=== PATIENT | female | born 1965 | race Caucasian/White ===

== ENCOUNTER → 2024-03-03 06:17 | Day surgery (SDC) | payer OTHER, SELFPAY | LOC: GI 06:17 | PROVIDERS: ATTENDING PHYSICIAN Internal Medicine | DX: Z12.11 Encounter for screening for malignant neoplasm of colon (principal); D12.0 Benign neoplasm of cecum; D12.8 Benign neoplasm of rectum; K63.5 Polyp of colon; K62.1 Rectal polyp; Z86.010 Personal history of colon polyps | CPT/HCPCS: 45385; 45380; 88305 ==

== ENCOUNTER 2024-03-13 10:06 | Emergency (ER) | payer OTHER, SELFPAY ==
[2024-03-13 10:18] VITALS: BP 192/107
--- NOTE | 2024-03-13 10:20 | ED.GENMED ---
ED Provider Triage
<Krysten Ferris PA-C - Last Filed: 03/13/24 10:24>
-
Patient seen by provider in Triage?: Seen in Triage
Attestation: A medical screening examination has been initiated by a qualified medical provider. Based on the assessment performed at this time, it has been determined that an emergent medical condition may exist and the patient has been informed
that further medical evaluation and possible additional diagnostic testing may be needed.
HPI: 58yoF here with low back pain x 5 days after heavy lifting. Using ibuprofen and Flexeril without relief. No fevers, incontinence, saddle anesthesia.
GENERAL: Alert , in no apparent distress
EYE: No visual abnormalities.
NECK: Trachea midline
ENT: No visible abnormalities.
LUNGS: No acute respiratory distress
NEUROLOGICAL: Alert and oriented
SKIN: Skin intact. No visible changes.
MUSCULOSKELETAL: Moving extremities normally
PSYCH: Normal and appropriate interaction.
This is a medical evaluation conducted in person to initiate diagnostic evaluation and provide initial therapeutics. Please see further documentation by the treating clinician.
Lumbar spine x-rays ordered.
History of Present Illness
<Krysten Ferris PA-C - Last Filed: 03/13/24 10:24>
General
Chief Complaint: Back Pain
Time Seen by Provider: 03/13/24 11:37
<Osman Davis MD - Last Filed: 03/13/24 14:59>
General
Source: patient
Exam Limitations: none
History of Present Illness
History of Present Illness:
58-year-old female complaining of low back pain. Positional in nature. Started with pain lifting 3 to 4 days ago. Initially seemed to start improving however became worse the last 24 hours. Some pain in her thighs. No distal numbness tingling
or weakness. No bowel or bladder issues. No infectious symptoms. Able to ambulate but with pain. Came by private vehicle
Past History
<rKysten Ferris PA-C - Last Filed: 03/13/24 10:24>
Past History
ED Past Medical History: Asthma, HTN and Other (Bacterial vaginal infection); Negative CAD
ED Past Surgical History: Cholecystectomy and (X2)
Social History
Tobacco: Smoker
Alcohol: Occasional
Drug: None
Personal:
Living: with family
Review of Systems
<Osman Davis MD - Last Filed: 03/13/24 14:59>
Review of Systems
All Other Systems: Not applicable
Constitutional: Denies fever or chills
ABD/GI: Reports no symptoms
Phy Exam
<Osman Davis MD - Last Filed: 03/13/24 14:59>
Physical Exam
Physical Exam:
GENERAL: Alert and oriented in no apparent distress
EYE: Orbits normal.
NECK: Supple
CARDIAC: Regular rate and rhythm without any obvious murmurs.
LUNGS: Clear breath sounds,normal
ABDOMEN: Soft, without focal tenderness or distention. No pulsatile mass
NEUROLOGICAL: Alert and oriented , grossly non-focal
SKIN: Warm and dry, no rash or lesion, no discoloration, skin intact.
MUSCULOSKELETAL: No edema,no deformity.Good color. Low back pain with straight leg raising. No shooting pain down the legs. Patellar reflexes intact. Lower extremity strength normal. Paralumbar tenderness and increased pain with sitting up. No
spinal tenderness
PSYCH: Normal and appropriate interaction.
Course
<Krysten Ferris PA-C - Last Filed: 03/13/24 10:24>
Orders/Labs/Results
Orders:
Orders
03/13/24 10:22
CR Lumbar Spine Comp Min 4 Vw* Urgent
Comment:
Reason For Exam: low back pain
03/13/24 11:12
Urinalysis Reflex To Culture Urgent
Date Specimen was Collected: 03/13/24
Time Specimen was Collected: 11:10
03/13/24 11:50
CT Abd/pel Without Iv Or Oral Urgent
Comment:
Reason For Exam: Back pain
Hydrocodone 5/APAP 325 [[place] 5/325] 1 tablet PO NOW STA
Ketorolac [Toradol] 60 mg IM NOW STA
Vital Signs
Initial and Last Documented VS:
Initial Vital Signs
Temp Pulse Resp BP Pulse Ox
98.3 F 84 18 192/107 100
03/13/24 10:18 03/13/24 10:18 03/13/24 10:18 03/13/24 10:18 03/13/24 10:18
Last Documented Vital Signs
Temp Pulse Resp BP Pulse Ox
98.3 F 87 18 154/87 98
03/13/24 10:18 03/13/24 14:34 03/13/24 14:34 03/13/24 14:34 03/13/24 14:34
<Osman Davis MD - Last Filed: 03/13/24 14:59>
Orders/Labs/Results
Orders:
Orders
03/13/24 10:22
CR Lumbar Spine Comp Min 4 Vw* Urgent
Comment:
Reason For Exam: low back pain
03/13/24 11:12
Urinalysis Reflex To Culture Urgent
Date Specimen was Collected: 03/13/24
Time Specimen was Collected: 11:10
03/13/24 11:50
CT Abd/pel Without Iv Or Oral Urgent
Comment:
Reason For Exam: Back pain
Hydrocodone 5/APAP 325 [[place] 5/325] 1 tablet PO NOW STA
Ketorolac [Toradol] 60 mg IM NOW STA
Vital Signs
Initial and Last Documented VS:
Initial Vital Signs
Temp Pulse Resp BP Pulse Ox
98.3 F 84 18 192/107 100
03/13/24 10:18 03/13/24 10:18 03/13/24 10:18 03/13/24 10:18 03/13/24 10:18
Last Documented Vital Signs
Temp Pulse Resp BP Pulse Ox
98.3 F 87 18 154/87 98
03/13/24 10:18 03/13/24 14:34 03/13/24 14:34 03/13/24 14:34 03/13/24 14:34
<Osman Davis MD - Last Filed: 03/13/24 14:59>
*Radiology
Radiology exam reviewed: preliminary read by ED provider (Degenerative changes) and radiology read reviewed (Mild degenerative changes. CT with vascular sclerotic changes. No aneurysm. No kidney stone.)
*Pulse Oximetry
Patient hypoxic: no
*Critical Care Note
Total Time (30-74mins, 75-104mins- exclusive of procedures): Not Applicable
<Osman Davis MD - Last Filed: 03/13/24 14:59>
Update Note
Update Note:
All consistent with musculoskeletal back pain. Stable for discharge to follow-up.
ED Attending Note
<Krysten Ferris PA-C - Last Filed: 03/13/24 10:24>
-
Portions of this chart may have been created with voice recognition software.� Occasional wrong word or��sound alike� substitutions may have occurred due to the inherent limitations of voice recognition software.
Discharge Plan
Departure
Patient Disposition: Home (Routine Discharge)
Date of Disposition: 03/13/24
Time of Disposition: 14:56
Patient with high blood pressure during this ER visit?: Yes
Discharge Problem:
Low back pain
Instructions: Low Back Pain (DC), BLOOD PRESSURE
Prescriptions:
New
hydrocodone-acetaminophen 5-300 mg tablet
1 tab PO Q4H PRN (Reason: Pain) Qty: 14 0RF
No Action
hydrochlorothiazide 12.5 MG capsule
12.5 mg PO DAILY
albuterol sulfate 1 PUFF HFA aerosol inhaler
1 puff inhalation R Q4HPRN PRN (Reason: sob)
loratadine 10 MG tablet
10 mg PO DAILY PRN (Reason: allergies)
etanercept [Enbrel] 50 MG/ML syringe
50 mg SQ DISLA
cholecalciferol (vitamin D3) [Vitamin D3] 2,000 UNIT capsule
2,000 unit PO DAILY
docusate sodium 100 MG capsule
100 mg PO BID 0RF
senna leaf extract [senna] 15 ML syrup
10 ml PO HSPRN PRN (Reason: constipation) 0RF
guaifenesin [Mucus Relief ER] 600 MG tablet extended release 12hr
600 mg PO Q12 Qty: 10 0RF
budesonide [Pulmicort Flexhaler] 90 MCG aerosol powdr breath activated
90 mcg inhalation R BID Qty: 1 0RF
prednisone 10 MG tablet
10 mg PO DAILY Qty: 30 0RF
Rx Instructions:
5 tabs daily for 2 days, 4 tabs daily for 2 days, 3 tabs daily for 2 days, 2 tabs daily for 2 days, 1 tab daily for 2 days.
albuterol sulfate 2.5 MG/3 ML solution for nebulization
2.5 mg inhalation R Q4HPRN PRN (Reason: wheezing, shortness of breath) Qty: 1 0RF
sucralfate 1 GM/10 ML suspension
1 gm PO QID Qty: 400 0RF
Rx Instructions:
1 hr priot to meals and at bedtime
pantoprazole 40 MG tablet,delayed release (DR/EC)
40 mg PO HS Qty: 14 0RF
Referrals:
Ivana Ambriz MD [Family Provider] - Follow up in 2-3 days
Activity Restrictions/Additional Instructions:
As we discussed do not take Tylenol with the Vicodin
Also be very careful with the muscle relaxer and the Vicodin as they can both cause drowsiness
Would recommend continuing Advil Motrin or Aleve
Interventions
Interventions:
*Risk Screen - Suicide Last Done: 03/13/24 10:18
*General Assessment Last Done: 03/13/24 10:18
*Neglect/Abuse Screening Last Done: 03/13/24 10:18
ED-Musculoskeletal Assessment Last Done: 03/13/24 11:26
Discharge Date and Time
Print Language: AUSTRALIAN
[2024-03-13 11:19] LABS: Urine Albumin Negative (Neg - Trace); Urine Bilirubin Negative (Negative); Urine Character Clear (Clear); Urine Color Yellow; Urine Glucose Negative (Negative); Urine Ketone Negative (Negative); Urine Leukocyte Negative (Negative); Urine Nitrite Negative (Negative); Urine Occult Blood Negative (Negative); Urine Urobilinogen Negative (Neg - 1+)
[2024-03-13] MEDS: TORADOL 60 MG IM (11:58)
[2024-03-13] MEDS: NORCO 5/325 1 TABLET PO (11:58)
[2024-03-13 14:34] VITALS: BP 154/87
== END 2024-03-13 15:37 | disposition home or self-care (01) ==
LOC: EMR 10:06
PROVIDERS: Student in an Organized Health Care Education/Training Program; EMERGENCY PHYSICIAN Emergency Medicine; FAMILY PHYSICIAN Family Medicine
DX: M54.50 Low back pain, unspecified (principal); I10 Essential (primary) hypertension; J45.909 Unspecified asthma, uncomplicated; F17.200 Nicotine dependence, unspecified, uncomplicated; Z90.49 Acquired absence of other specified parts of digestive tract; Z88.3 Allergy status to other anti-infective agents; Z88.0 Allergy status to penicillin
CPT/HCPCS: 99284; 96372; 72110; 74176; 81003

== ENCOUNTER → 2024-03-25 07:12 | Outpatient (REF) | payer OTHER, SELFPAY | LOC: RCS 07:12 | PROVIDERS: ATTENDING PHYSICIAN Internal Medicine Cardiovascular Disease; FAMILY PHYSICIAN Family Medicine; REFERRING PHYSICIAN Internal Medicine Rheumatology | DX: I35.0 Nonrheumatic aortic (valve) stenosis (principal) | CPT/HCPCS: 93306 ==

== ENCOUNTER → 2024-03-28 07:41 | Outpatient (REF) | payer OTHER, SELFPAY | LOC: WDC 07:41 | PROVIDERS: ATTENDING PHYSICIAN Obstetrics & Gynecology; FAMILY PHYSICIAN Family Medicine | DX: Z12.31 Encounter for screening mammogram for malignant neoplasm of breast (principal) | CPT/HCPCS: 77063; 77067 ==

== ENCOUNTER → 2024-09-01 07:01 | Outpatient (REF) | payer OTHER, SELFPAY | LOC: RCS 07:01 | PROVIDERS: ATTENDING PHYSICIAN Internal Medicine Cardiovascular Disease; FAMILY PHYSICIAN Family Medicine | DX: I35.0 Nonrheumatic aortic (valve) stenosis (principal) | CPT/HCPCS: 93306 ==

== ENCOUNTER → 2025-02-26 08:00 | Outpatient (REF) | payer OTHER, SELFPAY | LOC: RCS 08:00 | PROVIDERS: ATTENDING PHYSICIAN Internal Medicine Cardiovascular Disease; FAMILY PHYSICIAN Family Medicine | DX: I35.0 Nonrheumatic aortic (valve) stenosis (principal); Z82.49 Family history of ischemic heart disease and other diseases of the circulatory system | CPT/HCPCS: 93306 ==

== ENCOUNTER → 2025-03-31 07:38 | Outpatient (REF) | payer OTHER, SELFPAY | LOC: WDC 07:38 | PROVIDERS: ATTENDING PHYSICIAN Obstetrics & Gynecology; FAMILY PHYSICIAN Family Medicine | DX: Z12.31 Encounter for screening mammogram for malignant neoplasm of breast (principal) | CPT/HCPCS: 77063; 77067 ==

== ENCOUNTER 2025-05-22 23:21 | Observation (INO) | payer OTHER, SELFPAY ==
[2025-05-22 20:11] VITALS: BP 146/79
[2025-05-22 20:41] LABS: Hematocrit 30.8 % (37.0-47.0); Hemoglobin 11.2 g/dL (12.0-16.0); Mean Corp Hgb Conc. 36.4 g/dL (33.0-37.0); Mean Corpuscular Volume 90.9 fL (81.0-99.0); Nucleated Red Blood Cells % 0 %; Platelet Count 221 10^3/uL (130-400); Red Cell Dist. Width 11.9 % (11.5-14.5)
[2025-05-22] MEDS: TYLENOL 1000 MG PO (20:42)
[2025-05-22 20:46] LABS: Urine Character Clear (Clear)
[2025-05-22 20:48] LABS: COVID-19 Antigen Negative (Negative)
[2025-05-22 20:56] LABS: ALT (SGPT) 17 U/L (0-35); AST (SGOT) 22 U/L (14-36); Albumin 4.5 g/dl (3.5-5.0); Alkaline Phosphatase 48 U/L (38-126); Blood Urea Nitrogen 10 mg/dl (7-17); Calcium 9.0 mg/dl (8.4-10.2); Carbon Dioxide 18 mmol/L (22-30); Chloride 97 mmol/L (98-107); Glucose 90 mg/dl (70-99); Potassium 4.0 mmol/L (3.5-5.1); Sodium 125 mmol/L (135-145); Total Protein 6.9 g/dl (6.3-8.2); eGFR > 60.00
[2025-05-22 21:01] LABS: Urine Red Blood Cell 0-2 /HPF (0-2)
[2025-05-22 22:07] VITALS: BMI 27.9
[2025-05-22 22:09] VITALS: BP 132/65
--- NOTE | 2025-05-22 22:41 | ED.GENMED ---
History of Present Illness
General
Chief Complaint: Cold/Flu/URI Symptoms
Source: patient
Exam Limitations: none
Time Seen by Provider: 05/22/25 22:05
Nursing documentation reviewed up to this point in time: agreed with
History of Present Illness
History of Present Illness:
59-year-old female with a past medical history of hypertension, hyperlipidemia, CAD, asthma, RA who presents to the emergency department for evaluation of flulike illness. Patient reports onset of symptoms 2 AM today and she has been feeling worse
throughout the day. She reports fever and chills all day. She reports hacking nonproductive cough with wheezing. She reports mild shortness of breath. She reports severe myalgias and arthralgias. She says mild sore throat. Mild headache and
congestion. She did have some vomiting this evening. No diarrhea. She denies chest pain or abdominal pain. She denies any other acute symptoms. Denies any known sick contacts. She did have marked wheezing prior to hospital visit this evening
and took 2 albuterol nebulizers with some improvement.
Past History
Past History
ED Past Medical History: Asthma, HTN and Other (Bacterial vaginal infection); Negative CAD
ED Past Surgical History: Cholecystectomy and (X2)
Social History
Tobacco: Smoker
Alcohol: Occasional
Drug: None
Personal:
Living: with family
Review of Systems
Review of Systems
All Other Systems: ROS reviewed and negative except as documented in HPI and ROS
Constitutional: Reports fever, fatigue and chills
EENT: Reports sore throat and runny nose
Respiratory: Reports cough and trouble breathing
Cardiac: Denies chest pain
ABD/GI: Reports nausea and vomiting; Denies abdominal pain or diarrhea
: Denies flank pain
Musculoskeletal: Reports joint pain and muscle pain
Neurological: Reports headache
Phy Exam
Physical Exam
Physical Exam:
General: Awake, alert, oriented x3; no acute distress
Head: Normocephalic, atraumatic
Eyes: Conjunctiva normal, EOMI
Throat: Airway intact, handling secretions
Neck: Trachea midline, supple without meningismus
Lungs: Faint scattered wheeze, mild tachypnea, no hypoxia, no respiratory distress
Heart: Regular rate and rhythm, systolic murmur noted
Abd: Soft, non distended, nontender
Neuro: Grossly intact
Skin: Warm and dry
Extremities: No edema in extremities, warm and well-perfused
Scores
Heart Failure Risk
Heart Failure Risk Score: Not Applicable
Heart Score for Chest Pain Patients
STEMI patient?: Not applicable
Withdrawal Assessment of Alcohol
Withdrawal Assessment Completed?: Not applicable
Sepsis
Sepsis Screening
Sepsis Assessment: Sepsis Ruled Out
Sepsis Screen
Sepsis Screen: Sepsis Ruled Out
Date: 05/22/25
Time: 23:47
Course
Orders/Labs/Results
Orders:
Orders
05/22/25 20:17
Electrocardiogram (*1) Urgent
Reason for Study: Other
Other Reason for Exam: Possible Sepsis
Cardiac Monitoring- Treatment ONCE
EKG- Treatment ONCE
IV Insert/Care/Rem.- Treatment PRN
CR Chest - 2 Views Urgent
Comment:
Reason For Exam: suspected infection
O2 Therapy [RESP] Urgent
Titrate/Wean O2 to maintain O2 sat greater than (%): 93
Special Instructions: TO MAINTAIN CONTINUOUS O2 SATS > OR = 93%
Pulse Ox/cont/shift [RESP] Urgent
Quantity: 1
Special Instructions: CONTINUOUS
05/22/25 20:30
COVID-19 Antigen Urgent
Source: Nasal Swab
Complete Blood Count/With Diff Urgent
Lactic Acid Q4H
Comment: ON ICE, CANCEL 2ND ORDER IF FIRST LACTIC ACID LEVEL <2
Urinalysis Reflex To Culture Urgent
Date Specimen was Collected: 05/22/25
Time Specimen was Collected: 20:17
Urine Microscopic Reflex Cult Urgent
Influenza A+B Rapid Molecular Urgent
WAQAR Source: Nasal Swab
Specimen Description:
Urine Culture Urgent
WAQAR Source: U
Specimen Description:
Date Specimen was Collected: 05/22/25
Time Specimen was Collected: 20:17
05/22/25 20:31
Comprehensive Metabolic Panel Urgent
Blood Culture Q20M
WAQAR Source: Blood/Venous
Specimen Description:
Comment: Urgent from separate sites. If patient screens positive for possible sepsis
Blood Culture Q20M
WAQAR Source: Blood/Venous
Specimen Description:
Comment: Urgent from separate sites. If patient screens positive for possible sepsis
05/22/25 20:39
Acetaminophen [Tylenol] 1,000 mg .ROUTE .STK-MED ONE
05/22/25 20:41
Acetaminophen [Tylenol] 1,000 mg PO NOW STA
05/22/25 22:40
MethylPREDNISolone PF [Solu-Medrol Pf] 125 mg IV NOW STA
Oseltamivir Phosphate [Tamiflu] 75 mg PO NOW STA
05/22/25 22:41
0.9% Sodium Chloride 1000 ml [Nss] 1,000 ml IV BOLUS
05/22/25 23:21
Admit/Transfer Patient As Directed
Co-Sign Provider:
Level of Care: Observation services
Assign to:: Medical/Surgical
Physician / Group: [facility]
Diagnosis: Influenza A, asthma exacerbation
Reason for Hospitalization: Hyponatremia
PRN Pain Medication Management As Directed
May give lesser potent ordered pain med per pt: Yes
preference::
Protocol:: Medication orders for pain may be administered in a
manner that supports deferring to patient preference
when the pt is:
- Requesting an ordered lesser potent pain medication.
Least to most potent pain medications are defined
as: acetaminophen < NSAID < tramadol < opioids
(morphine, oxycodone, hydromorphone).
- Requesting a lesser dose of the same medication IF
ORDERED.
- Requesting a less intrusive route of administration
if both routes are prescribed by the provider (PO <
IV).
05/22/25 23:22
Code Status As Directed
Resuscitation Status: Full Code
Abnormal Lab Results
05/22/25 05/22/25
20:30 20:31
RBC 3.39 L 10^6/uL
(4.20-5.40)
Hgb 11.2 L g/dL
(12.0-16.0)
Hct 30.8 L %
(37.0-47.0)
MCH 33.0 H pg
(27.0-31.0)
Absolute Neuts (auto) 6.6 H 10^3/uL
(1.4-6.5)
Absolute Lymphs (auto) 0.4 L 10^3/uL
(1.2-3.4)
Neutrophils % 86.3 H %
(42.2-75.2)
Lymphocytes % 5.0 L %
(20.5-51.1)
Sodium 125 L mmol/L
(135-145)
Chloride 97 L mmol/L
(98-107)
Carbon Dioxide 18 L mmol/L
(22-30)
Ur Occult Blood Reflex 2+ A
(Negative)
Leukocyte Esterase Rfl 1+ A
(Negative)
Urine Bacteria (Reflex) Few A
(Negative)
Urine Albumin (Reflex) 1+ A
(Neg - Trace)
05/22/25 20:30
05/22/25 20:31
Vital Signs
Initial and Last Documented VS:
Initial Vital Signs
Temp Pulse Resp BP Pulse Ox
38.3 C H 111 24 146/79 95
05/22/25 20:11 05/22/25 20:11 05/22/25 20:11 05/22/25 20:11 05/22/25 20:11
Last Documented Vital Signs
Temp Pulse Resp BP Pulse Ox
36.9 C 98 21 132/65 96
05/22/25 22:17 05/22/25 22:10 05/22/25 22:10 05/22/25 22:09 05/22/25 22:41
MDM/Problems Addressed
Differential Diagnosis Includes:
Asthma exacerbation, pneumonia, bronchitis, viral illness (flu/COVID)
MDM/Problems Addressed:
59-year-old female presents with flulike illness started earlier this morning. She presents to us tachycardic, mildly tachypneic and febrile but not hypoxic. Physical exam is as above. She had lab work sent off including CBC which shows marginal
anemia, CMP shows moderate hyponatremia likely hypovolemic in the setting of vomiting today and poor p.o. intake. She is positive for influenza A which accounts for her symptoms suspect that she also has an asthma exacerbation. Chest x-ray shows
no pneumonia. Will plan to provide IV fluids for hypovolemia. Will provide IV steroid for asthma exacerbation. Minimal wheezing and she took nebulizer prior to hospital visit�Will provide additional nebs as needed. Will treat with Tamiflu as she
is within the window of benefit and has asthma history making her higher risk with influenza. Plan to admit for continued treatment. Discussed with hospitalist.
Chronic conditions affecting care:
Asthma
Acute Exacerbation and/or Progression of Chronic Illness:
Acute asthma exacerbation treated with steroids
Acute dehydration treat with fluids
Acute influenza treated with Tamiflu
*Radiology
Radiology exam reviewed: preliminary read by ED provider and radiology read reviewed
*Pulse Oximetry
SaO2: 96
Oxygen Mode of Delivery: Room air
Patient hypoxic: no (96%)
*EKG
Interpreted by ED Provider?: Yes
Heart Rate: 102
Rate: tachycardiac
Rhythm: sinus and sinus tachycardia
[place]: normal axis
Interval: normal interval
QRS Pattern: normal QRS
Ischemia: no ischemia
*Critical Care Note
Total Time (30-74mins, 75-104mins- exclusive of procedures): Not Applicable
Data Reviewed
Source: patient
Further Testing Considered But Not Given:
Albuterol
Patient Management
Discussion with other providers: Hospitalist (Discussed with hospitalist)
Escalation/DeEscalation of care consider admission/obs:
Admission indicated
ED Attending Note
-
Portions of this chart may have been created with voice recognition software.� Occasional wrong word or��sound alike� substitutions may have occurred due to the inherent limitations of voice recognition software.
Discharge Plan
Departure
Patient Disposition: Admit
Date of Disposition: 05/22/25
Time of Disposition: 22:43
Admit to doctor: Luly
Presentation/result/management discussed w/ accepting MD/DO: Hospitalist
Discharge Problem:
Asthma exacerbation, Influenza A, Hyponatremia
Prescriptions:
No Action
hydrochlorothiazide 12.5 MG capsule
12.5 mg PO DAILY
albuterol sulfate 1 PUFF HFA aerosol inhaler
1 puff inhalation R Q4HPRN PRN (Reason: sob)
loratadine 10 MG tablet
10 mg PO DAILY PRN (Reason: allergies)
etanercept [Enbrel] 50 MG/ML syringe
50 mg SQ DISLA
cholecalciferol (vitamin D3) [Vitamin D3] 2,000 UNIT capsule
2,000 unit PO DAILY
docusate sodium 100 MG capsule
100 mg PO BID 0RF
senna leaf extract [senna] 15 ML syrup
10 ml PO HSPRN PRN (Reason: constipation) 0RF
guaifenesin [Mucus Relief ER] 600 MG tablet extended release 12hr
600 mg PO Q12 Qty: 10 0RF
budesonide [Pulmicort Flexhaler] 90 MCG aerosol powdr breath activated
90 mcg inhalation R BID Qty: 1 0RF
prednisone 10 MG tablet
10 mg PO DAILY Qty: 30 0RF
Rx Instructions:
5 tabs daily for 2 days, 4 tabs daily for 2 days, 3 tabs daily for 2 days, 2 tabs daily for 2 days, 1 tab daily for 2 days.
albuterol sulfate 2.5 MG/3 ML solution for nebulization
2.5 mg inhalation R Q4HPRN PRN (Reason: wheezing, shortness of breath) Qty: 1 0RF
sucralfate 1 GM/10 ML suspension
1 gm PO QID Qty: 400 0RF
Rx Instructions:
1 hr priot to meals and at bedtime
pantoprazole 40 MG tablet,delayed release (DR/EC)
40 mg PO HS Qty: 14 0RF
hydrocodone-acetaminophen 5-300 mg tablet
1 tab PO Q4H PRN (Reason: Pain) Qty: 14 0RF
Referrals:
UNKNOWN - PT DOES,NOT KNOW [Family Provider]
Interventions
Interventions:
*General Assessment Last Done: 05/22/25 20:11
*Neglect/Abuse Screening Last Done: 05/22/25 20:11
*ED COVID-19 Vaccine History Last Done: 05/22/25 20:11
*ED Influenza Vaccine History Last Done: 05/22/25 20:11
[facility] Fall Risk Assessment Tool Last Done: 05/22/25 20:11
*Risk Screen - Suicide (C-SSRS) Last Done: 05/22/25 20:11
ED- Pulmonary Assessment Last Done: 05/22/25 22:00
Discharge Date and Time
Print Language: ROMANIAN
--- NOTE | 2025-05-22 23:14 | HPS.HSE ---
Family Physician
-
Family Physician: NOT KNOW UNKNOWN - PT DOES
Chief Complaint
-
URI symptoms
History of Present Illness
Patient is a 59-year-old female with past medical history significant hypertension, bipolar who natremia, asthma, tobacco use, history of migraine headaches who presents to the emergency department with URI symptoms.
Patient reports being in usual state of health up until 2 AM on day of admission when she suddenly felt very cold and had to put on warm blankets. She reports generalized aches and pains. She reports that she also started wheezing and she had
headache and nasal congestion. She reports worsening of her rheumatoid arthritis symptoms. Prior to this episode she denies any wheezing. She denied feeling short of breath she denied any lower extremity swelling. She denied having any fevers or
chills.
In the emergency department she was febrile to 101, blood pressure was 132/65, pulse was 98 and oxygen saturation was 96% on room air. ECG shows sinus tachycardia at rate of 102. Chest x-ray was unremarkable. Influenza test was positive COVID
test was negative. CBC was unremarkable, electrolytes were notable for a sodium of 125 and a bicarb of 18 otherwise unremarkable, with normal BUN and creatinine.
Medical History
Past Medical History
Past Medical History: Reports Asthma, HTN, Hypercholesterolemia and Other (Rheumatoid arthritis)
Additional Past Medical History:
Irritable bowel syndrome
Gastritis
History of PCI with no stents placed
Past Surgical History: Reports Cholecystectomy, and Other (Tubal ligation)
Social History
Tobacco: Smoker
Alcohol: None
Drug: None
Family History
Family History: Not pertinent
Allergies / Home Medications
Allergies reflects when Allergies were last updated in [employer].
Home Medications with original date entered in [employer] [facility]
Allergy/Medication List:
Allergies
Allergy/AdvReac Type Severity Reaction Status Date / Time
penicillin G Allergy Nausea / Verified 05/22/25 20:10
Vomiting
Penicillins Allergy Hives Verified 05/22/25 20:10
Cephalosporins AdvReac Nausea / Verified 05/22/25 20:10
Vomiting
Home Medications
albuterol sulfate 90 mcg/actuation aerosol inhaler 1 puff inhalation R Q4HPRN PRN sob 09/24/17
cholecalciferol (vitamin D3) 50 mcg (2,000 unit) capsule (Vitamin D3) 2,000 unit PO DAILY 09/24/17
etanercept 50 mg/mL (1 mL) subcutaneous syringe (Enbrel) 50 mg SQ DISLA 09/24/17
hydrochlorothiazide 12.5 mg capsule 12.5 mg PO DAILY 09/24/17
loratadine 10 mg tablet 10 mg PO DAILY PRN allergies 09/24/17
albuterol sulfate 2.5 mg/3 mL (0.083 %) solution for nebulization 2.5 mg (3 mL) inhalation R Q4HPRN PRN wheezing, shortness of breath ##1 06/03/19
budesonide 90 mcg/actuation breath activated powder inhaler (Pulmicort Flexhaler) 90 mcg inhalation R BID ##1 06/03/19
docusate sodium 100 mg capsule 100 mg PO BID 06/03/19
guaifenesin 600 mg tablet, extended release 12 hr (Mucus Relief ER) 600 mg PO Q12 #10 tabs 06/03/19
prednisone 10 mg tablet 10 mg PO DAILY #30 tabs 06/03/19
senna leaf extract 176 mg/5 mL oral syrup (senna) 10 ml PO HSPRN PRN constipation 06/03/19
pantoprazole 40 mg tablet,delayed release 40 mg PO HS #14 tabs 05/12/20
sucralfate 100 mg/mL oral suspension 1 gm PO QID #400 mL 05/12/20
hydrocodone 5 mg-acetaminophen 300 mg tablet 1 tab PO Q4H PRN Pain #14 tabs 03/13/24
Review of Systems
-
Constitutional: Reports Fever, Fatigue and Chills
EENT: Reports No Symptoms
Respiratory: Reports Trouble Breathing
Cardiac: Reports No Symptoms
Abdomen/GI: Reports No Symptoms
: Reports No Symptoms
Musculoskeletal: Reports Joint Pain
Skin: Reports No Symptoms
Neurological: Reports No Symptoms
Endocrine: Reports No Symptoms
Hematologic/Lymphatic: Reports No Symptoms
Psych: Reports No Symptoms
Physical Exam
Vital Signs
Vital Signs
Temp Pulse Resp BP Pulse Ox
98.5 F 98 21 132/65 96
05/22/25 22:17 05/22/25 22:10 05/22/25 22:10 05/22/25 22:09 05/22/25 22:41
Physical Exam
General: Well Developed, Well Nourished and No Apparent Distress
HEENT: NormoCephalic, Moist mucous membranes and Atraumatic
Respiratory: Clear
Cardiac: S1/S2 and Regular Rhythm; No Murmur or Rub
GI: Soft, Non Tender, Non Distended and Normal Bowel Sounds; No Organomegaly
Rectal: Deferred by Provider
Musculoskeletal: No Clubbing, No Cyanosis and No Edema
Skin: No Rash
Neuro: AO x 3 and Nonfocal/grossly intact
Hematologic/Lymphatic: No Lymphadenopathy
Psych: Calm
Laboratory Results
-
05/22/25 20:30
05/22/25 20:31
Laboratory Results
Lactic Acid 0.7 mmol/L (0.7-2.0) 05/22/25 20:30
Total Bilirubin 0.5 mg/dl (0.2-1.3) 05/22/25 20:31
AST 22 U/L (14-36) 05/22/25 20:31
ALT 17 U/L (0-35) 05/22/25 20:31
Alkaline Phosphatase 48 U/L (38-126) 05/22/25 20:31
Data Reviewed
-
Diagnostic Radiology: Image Personally Visualized and interpreted and Report Reviewed by me
Medical Tests (Nuc Med, Echo, EKG etc): Image Personally Visualized and interpreted
Lab Data: Labs Reviewed by me
Old Records: Reviewed
Impression/Plan
-
IMPRESSION:
59-year-old with past medical history significant for asthma, tobacco use, hypertension and a prior history of hyponatremia who presents to the emergency department with flulike symptoms and was diagnosed with influenza and asthma exacerbation she
has significant wheezing and some shortness of breath. She is no longer wheezing and she is maintaining oxygen saturation of 96% on room air. She is otherwise well-appearing at this time. However she is found to have a sodium of 125. She was
febrile to 101 on admission.
PLAN:
Influenza A infection -typical influenza infection, 1 day of symptoms
� Admit to MedSurg observation
� Will continue with Tamiflu
� Supportive measures
Asthma exacerbation -patient is currently not wheezing at the time of my examination. She is moving air normally and no evident tightness. She is satting 96% on room air. Chest x-ray was clear. Mild exacerbation at most
� Short course of prednisone 40 mg daily x 3 days
� Continue with montelukast
� Continue albuterol [id number] and then as needed
Hyponatremia -history of hyponatremia, patient reports that she had improvement on her last blood work about a month ago with sodium in the 130s but she is not able to specify exactly. We will obtain records. It looks like in the past she had
hyponatremia with cessation of hydrochlorothiazide. She is no longer taking any medications likely to cause hyponatremia. She states that she has been on Zepbound since January.
� Suspect hyponatremia secondary to influenza infection,�IV fluids for now
� Check urine awesome's and urine sodium
� Continue IV fluids overnight and repeat sodium in a.m.
� Will hold off nephrology consult unless sodium is not improving
� Hypertension
� Continue lisinopril
DVT prophylaxis�Lovenox subcu
CODE STATUS�full code
[2025-05-22] MEDS: SOLU-MEDROL PF 125 MG IV (23:47)
[2025-05-22] MEDS: NSS 1000 IV (23:47)
[2025-05-22] MEDS: TAMIFLU 75 MG PO (23:47)
[2025-05-23] MEDS: VENTOLIN NEBULES 2.5 MG INH ×5 (01:22→15:27)
[2025-05-23] MEDS: NSS 1000 IV (01:45)
[2025-05-23 03:00] VITALS: BP 129/75
[2025-05-23 04:24] LABS: Hematocrit 28.9 % (37.0-47.0); Hemoglobin 10.5 g/dL (12.0-16.0); Mean Corp Hgb Conc. 36.3 g/dL (33.0-37.0); Mean Corpuscular Volume 90.3 fL (81.0-99.0); Platelet Count 206 10^3/uL (130-400); Red Cell Dist. Width 11.9 % (11.5-14.5)
[2025-05-23 04:44] LABS: Blood Urea Nitrogen 8 mg/dl (7-17); Calcium 8.3 mg/dl (8.4-10.2); Carbon Dioxide 16 mmol/L (22-30); Chloride 102 mmol/L (98-107); Estimated Creatinine Clearance 76 ml/min; Glucose 110 mg/dl (70-99); Magnesium 1.8 mg/dl (1.6-2.3); Potassium 3.8 mmol/L (3.5-5.1); Sodium 129 mmol/L (135-145); eGFR > 60.00
[2025-05-23] MEDS: ZESTRIL 20 MG PO (07:54)
[2025-05-23] MEDS: TAMIFLU 75 MG PO (07:55)
[2025-05-23] MEDS: DELTASONE 40 MG PO (07:55)
[2025-05-23] MEDS: TYLENOL 650 MG PO (07:55)
[2025-05-23] MEDS: PROTONIX 40 MG PO (07:55)
[2025-05-23 07:59] VITALS: BP 133/80
--- NOTE | 2025-05-23 11:56 | W.PN.HOSP.TC ---
Addendum entered and electronically signed by Per Gleason MD 05/23/25 17:19:
Discussed with patient as requesting to go home. States she is feeling alot better compared to yesterday. tolerating diet. VSS. on room air. Remains without sob. Plan to dc home with tamiflu and prednisone. Answered all patient questions.
More than 30 minutes spent in discharge including
Final examination of the patient
Summarizing hospital stay
Instructions for continuing care to all relevant caregivers
Preparation of discharge records, prescriptions, and referral forms
Total time spent (in minutes): 55
Original Note:
Today's Communication/Plan
-
Continue with symptomatic management
Continue with Tamiflu
Continue with steroids
Continue bronchodilators
Observe off IV fluids
Awaiting home med rec confirmation
Assessment / Plan
Assessment / Plan
Gen: NAD, AAOx3.
Eyes: EOMI, no scleral icterus.
ENMT: OP clear of erythema/exudate, no thyromegaly.
Neck: supple.
CV: RRR, +S1/S2, no m/r/g.
Resp: no rales, wheezes, or rhonchi. On room air
Abd: +BS, soft, NT, ND
Skin: No rashes.
Neuro: CN 2-12 intact, non-focal.
Psych: Normal mood and affect.
59-year-old with past medical history significant for asthma, tobacco use, hypertension and a prior history of hyponatremia who presents to the emergency department with flulike symptoms and was diagnosed with influenza and asthma exacerbation she
has significant wheezing and some shortness of breath. She is no longer wheezing and she is maintaining oxygen saturation of 96% on room air. She is otherwise well-appearing at this time. However she is found to have a sodium of 125. She was
febrile to 101 on admission.
PLAN:
Influenza A infection -typical influenza infection,
� Will continue with Tamiflu
� Supportive measures
Asthma exacerbation -mild
� Short course of prednisone 40 mg daily
� Continue with montelukast
� Continue albuterol [id number] and then as needed
Acute on chronic hyponatremia
- Sodium improved with IV fluids. Encourage increased p.o. intake.
Hypertension
� Looks like on lisinopril.
Rheumatoid arthritis
History of migraine
Aortic stenosis
DVT prophylaxis�Lovenox subcu
CODE STATUS�full code
Awaiting home med rec
Anticipated Discharge: 24 - 48 hours
Subjective/Interval History
-
Date of Service: May 23, 2025
States continues to feel weak
Having coughing episodes at times
Remains on room air
Not much appetite.
Objective Data
-
Labs:
Laboratory Results
05/23/25
04:08
WBC 7.7
Hgb 10.5 L
Hct 28.9 L
Plt Count 206
Sodium 129 L
Potassium 3.8
Chloride 102
Carbon Dioxide 16 L
BUN 8
Creatinine 0.7
Glucose 110 H
Calcium 8.3 L
Vital Signs:
Vital Signs
Temp Pulse Resp BP Pulse Ox
98.7 F 90 18 133/80 93
05/23/25 07:59 05/23/25 11:47 05/23/25 11:47 05/23/25 07:59 05/23/25 11:47
Data Reviewed
-
Total Time Spent with Patient (in minutes): 55
--- NOTE | 2025-05-23 13:15 | CM ---
Chart reviewed and OBS form reviewed with pt at ED bedside
Lives in [address] with
no DME
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
[facility]. [facility] [address]
no hx of VN nor SNF
DCP is to go home
can provide transportation
Cm will continue to follow up for any dcp needs
[2025-05-23 15:42] VITALS: BP 115/64
--- NOTE | 2025-05-23 17:19 | W.DCSUMMARY ---
Discharge Summary
Discharge Data
Date of Admission: 05/22/25
Date of Discharge: 05/23/25
-
Pending Results: No
Hospital Course
59-year-old with past medical history significant for asthma, tobacco use, hypertension and a prior history of hyponatremia who presents to the emergency department with flulike symptoms and was diagnosed with influenza and asthma exacerbation she
has significant wheezing and some shortness of breath. She is no longer wheezing and she is maintaining oxygen saturation of 96% on room air. Patient was found to have mild hyponatremia which improved with IV fluid resuscitation. Patient was
stable on room air. Patient was started on Tamiflu. Patient was tolerating diet. IV fluid was discontinued. Blood cultures were negative. Patient was feeling significantly better. Patient will be discharged on Tamiflu and prednisone taper
regimen. Vital signs were stable. Patient was eager to get discharged.
Discharge Plan
-
Patient Disposition: Home (Routine Discharge)
Discharge Diagnosis/Procedures: Influenza A infection -typical influenza infection,
Asthma exacerbation -mild
Acute on chronic hyponatremia
Condition: Fair
Diet: Regular
Activity: As tolerated
Blood Work: BMP in 1 week via primary doctor.
Referrals:
UNKNOWN - PT DOES,NOT KNOW [Family Provider]
Prescriptions:
New
prednisone 10 mg Tablet
See Rx Instructions .ROUTE .COMPLEX Qty: 20 0RF
Rx Instructions:
Take By Mouth:
40 mg daily x2 days, 30 mg daily x2days,
20 mg daily x2 days, 10 mg daily x2 days.
oseltamivir [Tamiflu] 75 mg capsule
75 mg PO BID 4 Days Qty: 8 0RF
Continued
albuterol sulfate 1 PUFF HFA aerosol inhaler
1 puff inhalation R Q4HPRN PRN (Reason: sob)
loratadine 10 MG tablet
10 mg PO DAILY PRN (Reason: allergies)
Enbrel 50 MG/ML syringe
50 mg SQ DISLA
cholecalciferol (vitamin D3) [Vitamin D3] 2,000 UNIT capsule
2,000 unit PO DAILY
docusate sodium 100 MG capsule
100 mg PO BID 0RF
Rx Instructions:
pt no longer tkes this medication
senna leaf extract [senna] 15 ML syrup
10 ml PO HSPRN PRN (Reason: constipation) 0RF
Rx Instructions:
pt does not take this medication anymore
guaifenesin [Mucus Relief ER] 600 MG tablet extended release 12hr
600 mg PO Q12 Qty: 10 0RF
Pulmicort Flexhaler 90 MCG aerosol powdr breath activated
90 mcg inhalation R BID Qty: 1 0RF
albuterol sulfate 2.5 MG/3 ML solution for nebulization
2.5 mg inhalation R Q4HPRN PRN (Reason: wheezing, shortness of breath) Qty: 1 0RF
sucralfate 1 GM/10 ML suspension
1 gm PO QID Qty: 400 0RF
Patient Comments:
pt does not take this medication anymore
Rx Instructions:
1 hr priot to meals and at bedtime
pantoprazole 40 MG tablet,delayed release (DR/EC)
40 mg PO HS Qty: 14 0RF
Rx Instructions:
pt states she takes this medication in the morning
hydrocodone-acetaminophen 5-300 mg tablet
1 tab PO Q4H PRN (Reason: Pain) Qty: 14 0RF
lisinopril 20 mg Tablet
20 mg PO DAILY
Discontinued
hydrochlorothiazide 12.5 MG capsule
12.5 mg PO DAILY
Patient Comments:
family discontnued medication- and started on lisinopril 20mg daily
Rx Instructions:
family discontnued medication- and started on lisinopril 20mg daily
Discharge Orders:
Discharge Patient (As Directed); Ordered 05/23/25
Ordered By: Per Gleason
Discharge Date and Time
Discharge Date/Time: 05/23/25 18:18
Print Language: UZBEK
== END 2025-05-23 18:18 | disposition home or self-care (01) ==
LOC: 3 WEST ACU 23:21
PROVIDERS: Emergency Medicine; ADMITTING PHYSICIAN Internal Medicine; ATTENDING PHYSICIAN Hospitalist; EMERGENCY PHYSICIAN Emergency Medicine
DX: J10.1 Influenza due to other identified influenza virus with other respiratory manifestations (principal); J10.2 Influenza due to other identified influenza virus with gastrointestinal manifestations; J45.901 Unspecified asthma with (acute) exacerbation; R50.9 Fever, unspecified; I25.10 Atherosclerotic heart disease of native coronary artery without angina pectoris; E78.00 Pure hypercholesterolemia, unspecified; I10 Essential (primary) hypertension; M06.9 Rheumatoid arthritis, unspecified; R11.10 Vomiting, unspecified; F17.200 Nicotine dependence, unspecified, uncomplicated; E87.1 Hypo-osmolality and hyponatremia; R00.0 Tachycardia, unspecified; R06.82 Tachypnea, not elsewhere classified; I35.0 Nonrheumatic aortic (valve) stenosis; Z98.61 Coronary angioplasty status; Z88.0 Allergy status to penicillin; Z88.1 Allergy status to other antibiotic agents; Z79.52 Long term (current) use of systemic steroids; Z79.51 Long term (current) use of inhaled steroids; Z11.52 Encounter for screening for COVID-19; Z90.49 Acquired absence of other specified parts of digestive tract; Z98.51 Tubal ligation status; Z87.19 Personal history of other diseases of the digestive system
CPT/HCPCS: 71046; 80048; 80053; 81003; 81015; 83605; 83735; 83935; 84300; 85025; 85027; 87040; 87086; 87502; 87811; 93005; 94640; 94760; 96361; 96374; 99285; G0378